=== PATIENT | male | born 1965 | race Caucasian/White ===

== ENCOUNTER 2020-03-24 03:14 | Inpatient (IN) ==
[2020-03-24 04:33] LABS: Activated Partial Thrombo Time 46.1 seconds (26.0-38.0); INR 1.13 (0.82-1.09)
[2020-03-24 04:44] LABS: Troponin I 0.01 ng/mL (<0.03)
[2020-03-24 04:50] LABS: ABS Eosinophils 0.2 10^3/ul (0-0.6); ABS Lymphocytes 1.8 10^3/ul (1.0-4.8); ABS Monocytes 0.6 10^3/ul (0-0.8); Eosinophil % 2.8 %; Hematocrit 35 % (42-52); Hemoglobin 11.9 g/dL (14.0-18.0); Mean Corpuscular HGB Conc 34 g/dL (31-36); Mean Corpuscular Hemoglobin 32 pg (27-31); Mean Corpuscular Volume 93 fL (80-94); Mean Platelet Volume 9.5 fL (7.4-10.4); Nucleated Red Blood Cells % 0.1; Platelet Count 190 10^3/uL (150-450); Red Blood Count 3.72 10^6 /uL (4.18-5.48); Red Cell Distribution Width 15 % (10-15); White Blood Count 7.7 10^3/uL (3.5-10.8)
[2020-03-24] MEDS ORDERED: Heparin 5000 UNITS/ML 1 mL VIAL IV SCH (05:00)
[2020-03-24 05:02] LABS: EGFR Non-African American 45.4 (>60)
[2020-03-24] MEDS: Heparin DRIP 25,000 UNITS BAG 25,000 UNITS/500 ML BAG IV SCH (05:19)
[2020-03-24] MEDS ORDERED: Isosorbide Mononit ER 60mg TAB PO SCH (09:00)
[2020-03-24 10:35] LABS: Troponin I 0.01 ng/mL (<0.03)
[2020-03-24 12:55] LABS: BUN/Creatinine Ratio 25.7 (8-20); Calcium 9.8 mg/dL (8.6-10.3); EGFR African American 57.5 (>60); EGFR Non-African American 47.5 (>60); Potassium 3.9 mmol/L (3.5-5.0)
[2020-03-25 05:36] LABS: ABS Lymphocytes 1.1 10^3/ul (1.0-4.8); ABS Monocytes 0.6 10^3/ul (0-0.8); ABS Neutrophils 8.9 10^3/ul (1.5-7.7); Eosinophil % 0.3 %; Hematocrit 37 % (42-52); Hemoglobin 12.3 g/dL (14.0-18.0); Mean Corpuscular HGB Conc 34 g/dL (31-36); Mean Corpuscular Hemoglobin 32 pg (27-31); Mean Corpuscular Volume 95 fL (80-94); Mean Platelet Volume 9.5 fL (7.4-10.4); Platelet Count 192 10^3/uL (150-450); Red Blood Count 3.85 10^6 /uL (4.18-5.48); Red Cell Distribution Width 15 % (10-15); White Blood Count 10.6 10^3/uL (3.5-10.8)
[2020-03-25 05:53] LABS: BUN/Creatinine Ratio 25.9 (8-20); Calcium 9.9 mg/dL (8.6-10.3); EGFR African American 44.7 (>60); EGFR Non-African American 36.9 (>60); Potassium 4.4 mmol/L (3.5-5.0)
[2020-03-25] MEDS ORDERED: Isosorbide Mononit ER 60mg TAB PO SCH (09:00)
[2020-03-25] MEDS: Heparin DRIP 25,000 UNITS BAG 25,000 UNITS/500 ML BAG IV SCH (12:49)
[2020-03-25] MEDS ORDERED: Sodium Bicarb 650 mg (ANTACID) TAB PO SCH (16:30)
[2020-03-25 19:18] LABS: Urine Appearance Cloudy; Urine Bilirubin Negative (Negative); Urine Blood Negative (Negative); Urine Color Yellow; Urine Glucose Negative (Negative); Urine Ketones Negative (Negative); Urine Nitrite Negative (Negative); Urine Protein Negative (Negative); Urine Specific Gravity 1.009 (1.010-1.030); Urine Urobilinogen Negative (Negative)
[2020-03-25 19:26] LABS: Urine Creatinine Concentration 63.52 mg/dL
[2020-03-25 19:28] LABS: Urine Bacteria Absent (Absent); Urine Red Blood Cell Trace(0-2/hpf) (Absent); Urine White Blood Cell Trace(0-5/hpf) (Absent)
[2020-03-25] MEDS: Sodium Bicarb 650 mg (ANTACID) TAB PO SCH (19:58)
[2020-03-25] MEDS: Heparin 5000 UNITS/ML 1 mL VIAL SUBCUT SCH (23:21)
[2020-03-26] MEDS: Heparin 5000 UNITS/ML 1 mL VIAL SUBCUT SCH ×2 (05:26→13:14)
[2020-03-26 06:51] LABS: BUN/Creatinine Ratio 25.7 (8-20); Calcium 9.8 mg/dL (8.6-10.3); EGFR African American 37.9 (>60); EGFR Non-African American 31.3 (>60); Potassium 4.7 mmol/L (3.5-5.0)
[2020-03-26] MEDS: Sodium Bicarb 650 mg (ANTACID) TAB PO SCH (08:32)
[2020-03-26] MEDS ORDERED: Regadenoson 0.4 MG/5 ML SYRINGE ONE (11:44)
[2020-03-26 14:24] VITALS: BP 157/52
== END 2020-03-26 17:30 | disposition home or self-care (01) | DRG 303 ==
LOC: ED 03:14 → MEDTELE 04:00
PROVIDERS: ADMIT Student in an Organized Health Care Education/Training Program; ATTEND Internal Medicine

== ENCOUNTER 2022-04-19 09:57 | Inpatient (IN) ==
[2022-04-19] MEDS ORDERED: Furosemide 40 mg/4 ml IV VIAL IV SLOW PU ONE (11:57)
[2022-04-19] MEDS ORDERED: cefTRIAXone 1 gm/50 mL D5W 1 GM/50 ML BAG IV SCH (12:30)
[2022-04-19] MEDS ORDERED: Azithromycin 500 mg/250 ml NS 500 MG/250 ML BAG IVPB SCH (13:00)
[2022-04-19] MEDS ORDERED: Cefepime 2 GM in Dextrose 2 GM/50 ML BAG IV SCH (13:00)
[2022-04-19] MEDS ORDERED: Remdesivir 100 mg Vial 200 MG in NS 0.9% 250 ml 210 ML IV ONE (13:30)
[2022-04-19] MEDS ORDERED: Piperacillin/Tazobac ADVAN 3.375 GM in NS 0.9% 100 ml BAG 100 ML IV ONE (13:46)
[2022-04-19] MEDS ORDERED: Enoxaparin 40 MG/0.4 ML SYR SUBCUT SCH (14:00)
[2022-04-19] MEDS ORDERED: Zosyn per Pharmacy NOTE FOLLOW UP SCH (14:00)
[2022-04-19] MEDS ORDERED: Magnesium Sulfate 2 gm BAG 2 GM/50 ML BAG IVPB ONE (14:11)
[2022-04-19] MEDS ORDERED: PTO:Tacrolimus 0.5 mg CAP PO ONE (15:00)
[2022-04-19 15:03] LABS: ABS Lymphocytes 0.6 10^3/ul (1.0-4.8); ABS Monocytes 0.7 10^3/ul (0-0.8); ABS Neutrophils 7.8 10^3/ul (1.5-7.7); Eosinophil % 0.3 %; Hematocrit 45 % (42-52); Hemoglobin 15.5 g/dL (14.0-18.0); Lymphocyte % 6.5 %; Mean Corpuscular HGB Conc 35 g/dL (31-36); Mean Corpuscular Hemoglobin 33 pg (27-31); Mean Corpuscular Volume 94 fL (80-94); Mean Platelet Volume 10.1 fL (7.4-10.4); Platelet Count 176 10^3/uL (150-450); Red Blood Count 4.75 10^6 /uL (4.18-5.48); Red Cell Distribution Width 15 % (10-15); White Blood Count 9.2 10^3/uL (3.5-10.8)
[2022-04-19 15:13] LABS: INR 1.25 (0.89-1.11)
[2022-04-19] MEDS: Heparin 5000 UNITS/ML 1 mL VIAL SUBCUT SCH (15:16)
[2022-04-19 15:21] LABS: Activated Partial Thrombo Time 33.9 seconds (26.0-38.0)
[2022-04-19 15:39] LABS: Albumin 3.9 g/dL (3.2-5.2); Albumin/Globulin Ratio 1.1 (1-3); Calcium 9.3 mg/dL (8.6-10.3); Globulin 3.7 g/dL (2-4); Magnesium 1.6 mg/dL (1.9-2.7); Potassium 4.1 mmol/L (3.5-5.0); Total Bilirubin 0.6 mg/dL (0.2-1.0); Total Protein 7.6 g/dL (6.4-8.9)
[2022-04-19] MEDS: TACROLIMUS 1 MG PO SCH (19:57)
[2022-04-19] MEDS: CMC:Ranolazine 500 mg TAB ER (NF) PO SCH (19:57)
[2022-04-19] MEDS: ZOSYN 3.375 GM Q8H per EXTENDED INFUSION IV SCH (20:00)
[2022-04-20] MEDS: Heparin 5000 UNITS/ML 1 mL VIAL SUBCUT SCH ×4 (00:21→22:01)
[2022-04-20] MEDS: ZOSYN 3.375 GM Q8H per EXTENDED INFUSION IV SCH ×3 (04:30→20:12)
[2022-04-20 04:58] LABS: ABS Basophils 0.1 10^3/ul (0-0.2); ABS Lymphocytes 0.6 10^3/ul (1.0-4.8); ABS Neutrophils 7.4 10^3/ul (1.5-7.7); Eosinophil % 0.1 %; Hematocrit 43 % (42-52); Hemoglobin 14.1 g/dL (14.0-18.0); Lymphocyte % 6.3 %; Mean Corpuscular HGB Conc 33 g/dL (31-36); Mean Corpuscular Hemoglobin 31 pg (27-31); Mean Corpuscular Volume 93 fL (80-94); Mean Platelet Volume 9.7 fL (7.4-10.4); Nucleated Red Blood Cells % 0.1; Platelet Count 148 10^3/uL (150-450); Red Cell Distribution Width 15 % (10-15)
[2022-04-20 05:05] LABS: INR 1.43 (0.89-1.11)
[2022-04-20 05:44] LABS: Albumin 3.4 g/dL (3.2-5.2); Albumin/Globulin Ratio 1.1 (1-3); Calcium 8.6 mg/dL (8.6-10.3); Globulin 3.1 g/dL (2-4); Potassium 3.9 mmol/L (3.5-5.0); Total Bilirubin 0.6 mg/dL (0.2-1.0); Total Protein 6.5 g/dL (6.4-8.9); eGFR CKD-EPI 23.7 (>60)
[2022-04-20] MEDS: Dexamethasone IV 4 MG/ML VIAL 1 ml VIAL IV SLOW PU SCH (08:00)
[2022-04-20] MEDS: TACROLIMUS 1 MG PO SCH ×2 (08:01→20:03)
[2022-04-20] MEDS: CMC:Ranolazine 500 mg TAB ER (NF) PO SCH ×2 (08:01→20:03)
[2022-04-20] MEDS: Remdesivir 100 mg Vial 100 MG in NS 0.9% 250 ml 230 ML IV SCH (09:16)
[2022-04-20] MEDS: Pantoprazole VIAL 40 MG VIAL IV SCH (16:18)
[2022-04-20] MEDS: Azithromycin 500 mg/250 ml NS 500 MG/250 ML BAG IVPB SCH (16:18)
[2022-04-21] MEDS: ZOSYN 3.375 GM Q8H per EXTENDED INFUSION IV SCH ×3 (04:52→20:02)
[2022-04-21 05:26] LABS: ABS Lymphocytes 0.4 10^3/ul (1.0-4.8); ABS Monocytes 0.5 10^3/ul (0-0.8); ABS Neutrophils 6.6 10^3/ul (1.5-7.7); Hematocrit 38 % (42-52); Hemoglobin 12.6 g/dL (14.0-18.0); Lymphocyte % 5.7 %; Mean Corpuscular HGB Conc 33 g/dL (31-36); Mean Corpuscular Hemoglobin 31 pg (27-31); Mean Corpuscular Volume 92 fL (80-94); Mean Platelet Volume 10.3 fL (7.4-10.4); Platelet Count 144 10^3/uL (150-450); Red Blood Count 4.13 10^6 /uL (4.18-5.48); Red Cell Distribution Width 15 % (10-15); White Blood Count 7.6 10^3/uL (3.5-10.8)
[2022-04-21] MEDS: Heparin 5000 UNITS/ML 1 mL VIAL SUBCUT SCH ×3 (05:27→22:35)
[2022-04-21 05:32] LABS: INR 1.48 (0.89-1.11)
[2022-04-21 06:00] LABS: Albumin 2.9 g/dL (3.2-5.2); Albumin/Globulin Ratio 1.1 (1-3); Calcium 8.1 mg/dL (8.6-10.3); Globulin 2.7 g/dL (2-4); Magnesium 2.5 mg/dL (1.9-2.7); Total Bilirubin 0.6 mg/dL (0.2-1.0); Total Protein 5.6 g/dL (6.4-8.9); eGFR CKD-EPI 19.8 (>60)
[2022-04-21] MEDS: TACROLIMUS 1 MG PO SCH ×2 (08:39→20:05)
[2022-04-21] MEDS: CMC:Ranolazine 500 mg TAB ER (NF) PO SCH ×2 (08:39→20:04)
[2022-04-21] MEDS: Pantoprazole VIAL 40 MG VIAL IV SCH (08:39)
[2022-04-21] MEDS: Dexamethasone IV 4 MG/ML VIAL 1 ml VIAL IV SLOW PU SCH (08:39)
[2022-04-21] MEDS: Remdesivir 100 mg Vial 100 MG in NS 0.9% 250 ml 230 ML IV SCH (11:26)
[2022-04-21] MEDS ORDERED: Bumetanide IV 0.25 MG/ML 4 ml VIAL (1 mg) SLOW PUSH ONE ×2 (12:36→16:41)
[2022-04-21] MEDS: Hydrocortisone INJ 100 MG/2ML 2 ML VIAL IV SCH ×2 (14:49→22:35)
[2022-04-21] MEDS: Azithromycin 500 mg/250 ml NS 500 MG/250 ML BAG IVPB SCH (17:39)
[2022-04-21 18:12] LABS: Urine Appearance Clear; Urine Bilirubin Negative (Negative); Urine Color Straw; Urine Glucose Negative (Negative); Urine Ketones Negative (Negative); Urine Nitrite Negative (Negative); Urine Protein Negative (Negative); Urine Urobilinogen 0.2 (Negative) (Negative); Urine pH 5.5 (5.0-9.0)
[2022-04-21 18:30] LABS: Urine Bacteria Absent (Absent); Urine Red Blood Cell 3+(>10/hpf) (Absent); Urine White Blood Cell Trace(0-5/hpf) (Absent)
[2022-04-21 19:44] LABS: Magnesium 2.4 mg/dL (1.9-2.7); Potassium 3.8 mmol/L (3.5-5.0); eGFR CKD-EPI 19.9 (>60)
[2022-04-22] MEDS: ZOSYN 3.375 GM Q8H per EXTENDED INFUSION IV SCH ×3 (05:44→19:50)
[2022-04-22] MEDS: Hydrocortisone INJ 100 MG/2ML 2 ML VIAL IV SCH ×3 (05:48→22:06)
[2022-04-22] MEDS: Heparin 5000 UNITS/ML 1 mL VIAL SUBCUT SCH ×3 (05:48→22:04)
[2022-04-22 06:04] LABS: ABS Lymphocytes 0.3 10^3/ul (1.0-4.8); ABS Monocytes 0.4 10^3/ul (0-0.8); ABS Neutrophils 8.2 10^3/ul (1.5-7.7); Hematocrit 40 % (42-52); Hemoglobin 14.3 g/dL (14.0-18.0); Lymphocyte % 3.3 %; Mean Corpuscular HGB Conc 36 g/dL (31-36); Mean Corpuscular Hemoglobin 33 pg (27-31); Mean Corpuscular Volume 92 fL (80-94); Mean Platelet Volume 10.2 fL (7.4-10.4); Platelet Count 146 10^3/uL (150-450); Red Blood Count 4.32 10^6 /uL (4.18-5.48); Red Cell Distribution Width 15 % (10-15); White Blood Count 8.9 10^3/uL (3.5-10.8)
[2022-04-22 06:06] LABS: INR 1.32 (0.89-1.11)
[2022-04-22 06:40] LABS: Potassium 3.4 mmol/L (3.5-5.0); Total Protein 5.9 g/dL (6.4-8.9)
[2022-04-22 06:41] LABS: Globulin 2.9 g/dL (2-4); Total Bilirubin 0.6 mg/dL (0.2-1.0)
[2022-04-22] MEDS ORDERED: Potassium Chloride LIQUID 20 MEQ/15 ML LIQUID PO ONE (07:21)
[2022-04-22] MEDS: Remdesivir 100 mg Vial 100 MG in NS 0.9% 250 ml 230 ML IV SCH (09:25)
[2022-04-22] MEDS: TACROLIMUS 1 MG PO SCH ×2 (09:25→20:32)
[2022-04-22] MEDS: CMC:Ranolazine 500 mg TAB ER (NF) PO SCH ×2 (09:26→20:32)
[2022-04-22] MEDS: Pantoprazole VIAL 40 MG VIAL IV SCH (09:27)
[2022-04-22] MEDS ORDERED: Bumetanide IV 0.25 MG/ML 4 ml VIAL (1 mg) SLOW PUSH ONE ×2 (10:48→16:00)
[2022-04-22] MEDS ORDERED: Dextrose 50% Syringe 50 ml 25 GM/50 ML SYRINGE IV PUSH PRN (10:52)
[2022-04-22 18:44] LABS: Calcium 7.9 mg/dL (8.6-10.3); Potassium 3.1 mmol/L (3.5-5.0); eGFR CKD-EPI 22.5 (>60)
[2022-04-23] MEDS: ZOSYN 3.375 GM Q8H per EXTENDED INFUSION IV SCH ×3 (03:46→22:04)
[2022-04-23] MEDS: Heparin 5000 UNITS/ML 1 mL VIAL SUBCUT SCH ×3 (05:55→22:05)
[2022-04-23] MEDS: Hydrocortisone INJ 100 MG/2ML 2 ML VIAL IV SCH ×3 (05:56→22:04)
[2022-04-23 05:57] LABS: ABS Lymphocytes 0.3 10^3/ul (1.0-4.8); ABS Monocytes 0.3 10^3/ul (0-0.8); ABS Neutrophils 7.2 10^3/ul (1.5-7.7); Eosinophil % 0.2 %; Hematocrit 41 % (42-52); Hemoglobin 13.6 g/dL (14.0-18.0); Lymphocyte % 4.3 %; Mean Corpuscular HGB Conc 33 g/dL (31-36); Mean Corpuscular Hemoglobin 31 pg (27-31); Mean Corpuscular Volume 92 fL (80-94); Mean Platelet Volume 10.3 fL (7.4-10.4); Nucleated Red Blood Cells % 0.2; Platelet Count 162 10^3/uL (150-450); Red Blood Count 4.43 10^6 /uL (4.18-5.48); Red Cell Distribution Width 15 % (10-15); White Blood Count 7.9 10^3/uL (3.5-10.8)
[2022-04-23 06:03] LABS: INR 1.32 (0.89-1.11)
[2022-04-23 06:44] LABS: Magnesium 1.8 mg/dL (1.9-2.7); Potassium 3.1 mmol/L (3.5-5.0); Total Bilirubin 0.7 mg/dL (0.2-1.0); eGFR CKD-EPI 22.2 (>60)
[2022-04-23] MEDS: Pantoprazole VIAL 40 MG VIAL IV SCH (08:26)
[2022-04-23] MEDS: TACROLIMUS 1 MG PO SCH ×2 (08:27→22:12)
[2022-04-23] MEDS: CMC:Ranolazine 500 mg TAB ER (NF) PO SCH ×2 (08:27→22:08)
[2022-04-23] MEDS: KCL 20 MEQ/100 ML IVPREMIX 20 MEQ/100 ML BAG IV SCH ×2 (08:36→10:47)
[2022-04-23] MEDS: Remdesivir 100 mg Vial 100 MG in NS 0.9% 250 ml 230 ML IV SCH (08:40)
[2022-04-23] MEDS ORDERED: Bumetanide IV 0.25 MG/ML 4 ml VIAL (1 mg) SLOW PUSH ONE ×2 (09:17→17:00)
[2022-04-23] MEDS ORDERED: Potassium Chloride LIQUID 20 MEQ/15 ML LIQUID PO ONE (10:41)
[2022-04-23] MEDS: Isosorbide Mononit ER 60mg TAB PO SCH (12:04)
[2022-04-23 15:33] LABS: Tacrolimus 6.9 ng/mL
[2022-04-24] MEDS: Heparin 5000 UNITS/ML 1 mL VIAL SUBCUT SCH ×3 (06:33→21:10)
[2022-04-24] MEDS: ZOSYN 3.375 GM Q8H per EXTENDED INFUSION IV SCH ×2 (06:33→12:49)
[2022-04-24] MEDS: Hydrocortisone INJ 100 MG/2ML 2 ML VIAL IV SCH (06:34)
[2022-04-24] MEDS: Pantoprazole VIAL 40 MG VIAL IV SCH (08:49)
[2022-04-24] MEDS: TACROLIMUS 1 MG PO SCH ×2 (09:05→21:09)
[2022-04-24] MEDS: Isosorbide Mononit ER 60mg TAB PO SCH (09:06)
[2022-04-24] MEDS: CMC:Ranolazine 500 mg TAB ER (NF) PO SCH ×2 (09:07→21:10)
[2022-04-24 09:47] LABS: ABS Lymphocytes 0.4 10^3/ul (1.0-4.8); ABS Monocytes 0.5 10^3/ul (0-0.8); ABS Neutrophils 6.7 10^3/ul (1.5-7.7); Hematocrit 40 % (42-52); Hemoglobin 13.6 g/dL (14.0-18.0); Lymphocyte % 4.7 %; Mean Corpuscular HGB Conc 34 g/dL (31-36); Mean Corpuscular Hemoglobin 31 pg (27-31); Mean Corpuscular Volume 91 fL (80-94); Mean Platelet Volume 9.8 fL (7.4-10.4); Platelet Count 167 10^3/uL (150-450); Red Blood Count 4.38 10^6 /uL (4.18-5.48); Red Cell Distribution Width 15 % (10-15); White Blood Count 7.5 10^3/uL (3.5-10.8)
[2022-04-24 10:33] LABS: Albumin 3.1 g/dL (3.2-5.2); Albumin/Globulin Ratio 1.1 (1-3); Calcium 8.3 mg/dL (8.6-10.3); Globulin 2.9 g/dL (2-4); Potassium 2.8 mmol/L (3.5-5.0); Total Bilirubin 0.6 mg/dL (0.2-1.0); eGFR CKD-EPI 24.3 (>60)
[2022-04-24] MEDS ORDERED: Potassium Chlor 20 meq TAB.ER PO ONE (10:39)
[2022-04-24 21:36] LABS: Calcium 8.3 mg/dL (8.6-10.3); Potassium 3.2 mmol/L (3.5-5.0); eGFR CKD-EPI 20.5 (>60)
[2022-04-25 05:28] LABS: Hematocrit 37 % (42-52); Hemoglobin 12.7 g/dL (14.0-18.0); Mean Corpuscular HGB Conc 35 g/dL (31-36); Mean Corpuscular Hemoglobin 31 pg (27-31); Mean Corpuscular Volume 90 fL (80-94); Mean Platelet Volume 9.9 fL (7.4-10.4); Platelet Count 171 10^3/uL (150-450); Red Blood Count 4.09 10^6 /uL (4.18-5.48); Red Cell Distribution Width 15 % (10-15); White Blood Count 9.4 10^3/uL (3.5-10.8)
[2022-04-25] MEDS: Heparin 5000 UNITS/ML 1 mL VIAL SUBCUT SCH ×2 (05:50→13:08)
[2022-04-25 06:25] LABS: Calcium 8.4 mg/dL (8.6-10.3); Magnesium 1.6 mg/dL (1.9-2.7); Potassium 2.9 mmol/L (3.5-5.0); eGFR CKD-EPI 25.5 (>60)
[2022-04-25] MEDS ORDERED: Magnesium Sulf 4 GM/100 ML IV 4,000 MG/100 ML BAG IVPB ONE (07:49)
[2022-04-25] MEDS ORDERED: Potassium Chlor 20 meq TAB.ER PO ONE ×2 (07:49→15:32)
[2022-04-25] MEDS: Pantoprazole VIAL 40 MG VIAL IV SCH (09:24)
[2022-04-25] MEDS: TACROLIMUS 1 MG PO SCH (09:24)
[2022-04-25] MEDS: CMC:Ranolazine 500 mg TAB ER (NF) PO SCH (09:25)
[2022-04-25] MEDS: Isosorbide Mononit ER 60mg TAB PO SCH ×2 (09:26→09:27)
[2022-04-25 15:03] LABS: Calcium 8.7 mg/dL (8.6-10.3); Magnesium 3.1 mg/dL (1.9-2.7); Potassium 3.7 mmol/L (3.5-5.0)
[2022-04-25 15:08] LABS: eGFR CKD-EPI 30.2 (>60)
[2022-04-25 16:20] VITALS: BP 109/49
== END 2022-04-25 17:35 | disposition home or self-care (01) | DRG 177 ==
LOC: SUATTDRO 11:45 → ICU 11:45 → MEDTELE 04-24 06:15
PROVIDERS: ADMIT Internal Medicine; ATTEND Internal Medicine